=== PATIENT | female | born 1985 | race African-American/Black ===

== ENCOUNTER 2018-06-03 01:35 | Emergency (ER) | payer SELFPAY ==
[2018-06-03] MEDS ORDERED: Lidocaine 1% PF 5 ML VIAL ONE (03:53)
[2018-06-03] MEDS ORDERED: Adacel (T-DAP) 0.5 ML VIAL ONE (05:09)
== END 2018-06-03 06:00 | disposition home or self-care (01) ==
LOC: ERS 01:35
DX: S71.112A Laceration without foreign body, left thigh, initial encounter (principal); J45.909 Unspecified asthma, uncomplicated; X58.XXXA Exposure to other specified factors, initial encounter
CPT/HCPCS: 12001; 90471; 90715; J2001

== ENCOUNTER 2021-09-24 00:33 | Emergency (ER) | payer SELFPAY ==
[2021-09-24] MEDS ORDERED: Albuterol Sulfate 2.5 mg/3 ml Neb ONE ×2 (01:07→02:18)
== END 2021-09-24 02:40 | disposition home or self-care (01) ==
LOC: ERS 00:33
DX: J45.901 Unspecified asthma with (acute) exacerbation (principal)
CPT/HCPCS: 71045; 94640; J7611; J7620

== ENCOUNTER 2021-10-30 19:47 | Emergency (ER) | payer SELFPAY ==
[2021-10-30] MEDS ORDERED: Dexamethasone 4 MG TAB ONE (23:23)
[2021-10-31 11:27] LABS: SARS-CoV-2 PCR by NAA Not Detected (NotDetected)
== END 2021-10-30 23:37 | disposition home or self-care (01) ==
LOC: ERS 19:47
DX: J06.9 Acute upper respiratory infection, unspecified (principal); Z20.822 Contact with and (suspected) exposure to COVID-19; J45.909 Unspecified asthma, uncomplicated; Z79.899 Other long term (current) drug therapy
CPT/HCPCS: 71045; 87804; J8540; U0003; U0005